=== PATIENT | male | born 1955 | race Caucasian/White ===

== ENCOUNTER 2017-11-07 17:26 | Emergency (ER) | payer BC, OTHER ==
[~2017-11-07] VITALS: Ht 182.9 cm; Wt 167.8 kg
[~2017-11-07 17:26] MED LIST: tramadol
[2017-11-07] MEDS ORDERED: KETOROLAC TROMETHAMINE 60 MG/2 ML VIAL IM ONE (17:45)
[2017-11-07] MEDS ORDERED: CYCLOBENZAPRINE HCL 10 MG TAB PO ONE (17:45)
[2017-11-07] MEDS ORDERED: TRAMADOL HCL 50 MG TAB PO ONE (17:45)
--- NOTE | 2017-11-07 19:36 | Diagnostic Imaging Report ---
RIGHT RIBS X-RAY - 8 VIEWS HISTORY: \S\r/o fx right ribs \[id number] \[id number] COMPARISON: None available. FINDINGS: Bones: Acute mildly displaced fracture of the lateral right fifth (RPO view) and eighth rib. Osseous alignment is within normal limits. Joints: The joint spaces are well-maintained. Soft tissues: The soft tissues appear unremarkable. Lungs are clear. No pneumothorax or pleural effusions. IMPRESSION: Acute mildly displaced fractures involving the right fifth and eight ribs. Signed by: Dr. Zena Arroyo M.D. on 11/07/2017 7:20 PM
--- NOTE | 2017-11-07 19:40 | Diagnostic Imaging Report ---
RIGHT HUMERUS X-RAY - 4 VIEWS HISTORY: \S\r/o fx right ribs \[id number] \[id number] COMPARISON: None available. FINDINGS: Bones: No acute displaced fracture. Osseous alignment is within normal limits. Joints: The joint spaces are well-maintained. Soft tissues: The soft tissues appear unremarkable. IMPRESSION: No acute radiographic abnormality. Signed by: Dr. Zena Arroyo M.D. on 11/07/2017 7:36 PM
== END 2017-11-07 21:21 | disposition home or self-care (01) ==
LOC: ER 17:26
DX: S22.41XA Multiple fractures of ribs, right side, initial encounter for closed fracture (principal); V19.3XXA Pedal cyclist (driver) (passenger) injured in unspecified nontraffic accident, initial encounter; Y93.55 Activity, bike riding; Y92.488 Other paved roadways as the place of occurrence of the external cause
CPT/HCPCS: 71101; 73060; 99284; J1885